=== PATIENT | male | born 1980 | race Caucasian/White ===

== ENCOUNTER 2017-08-27 08:28 | Emergency (ER) | payer OTHER ==
[2017-08-27 08:43] VITALS: RESP 17
[2017-08-27] MEDS ORDERED: DIPH,PERTUS(ACELL)TETVAC-LF 0.5 ML VIAL IM ONE (08:54)
--- NOTE | 2017-08-27 08:57 | ED ---
Wound/Laceration HPI - General Chief Complaint: Wound/Laceration Stated Complaint: [facility]. R hand laceration Time Seen by Provider: 08/27/17 08:46 Source: patient, RN notes reviewed Mode of arrival: ambulatory Limitations: no limitations - History of Present Illness Initial Comments: This is a 37-year-old male presents emergency Department with chief complaint of right hand index finger injury. 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 Patient states that he is unsure when his last tetanus was. Patient states the distal tip of some finger is missing. Patient is right-hand dominant. states that the pain is unbearable at times. He does have full range of motion of his digit. - Related Data Home Medications Medication Instructions Recorded Confirmed Ibuprofen [Motrin] 200 - 400 mg PO Q6HR PRN 08/27/17 08/27/17 Previous Rx's Medication Instructions Recorded Cephalexin [Keflex] 500 mg PO Q6HR #40 cap 08/27/17 Hydrocodone/Acetaminophen [Mchenry 1 tab PO Q6HR PRN #20 tab 08/27/17 5-325] Allergies Allergy/AdvReac Type Severity Reaction Status Date / Time No Known Allergies Allergy Verified 08/27/17 08:51 Review of Systems ROS Statement: Those systems with pertinent positive or pertinent negative responses have been documented in the HPI. ROS Other: All systems not noted in ROS Statement are negative. Past Medical History Past Medical History: No Reported History History of Any Multi-Drug Resistant Organisms: None Reported Past Surgical History: No Surgical Hx Reported Past Psychological History: No Psychological Hx Reported Smoking Status: Never smoker Past Alcohol Use History: Occasional Past Drug Use History: Marijuana General Exam Limitations: no limitations General appearance: alert, in no apparent distress Respiratory exam: Present: normal lung sounds bilaterally. Absent: respiratory distress, wheezes, rales, rhonchi, stridor Cardiovascular Exam: Present: regular rate, normal rhythm, normal heart sounds. Absent: systolic murmur, diastolic murmur, rubs, gallop, clicks Extremities exam: Present: other (Right hand second digit there is a very distal tip avulsion, nail avulsion noted patient has full range of motion there is minimal bleeding at this time. Remaining digits within normal limits) Skin exam: Present: warm, dry Course Vital Signs 11/22/17 08:40 Temperature 97.9 F Pulse Rate 81 Respiratory 17 Rate Blood Pressure 125/67 O2 Sat by Pulse 98 Oximetry Procedures - Procedures Initial comment: Right hand second digit digital block was performed proximal finger was cleaned with alcohol wipe, 1% lidocaine without epinephrine was used 4 mL of lidocaine were injected on either side of the digit patient tolerated well had complete relief of his pain. The finger was soaked in saline and Betadine thoroughly cleaned no form eyes noted Gelfoam was applied over the distal tip of the finger and finger was wrapped. Medical Decision Making - Medical Decision Making 29-year-old male presented for finger tip avulsion. This was thoroughly cleaned x-ray performed shows possible avulsion fracture. Patient was placed on antibiotics, pain medication and follow-up with Dr. Conley. Disposition Clinical Impression: Fingertip avulsion, Finger fracture, right Disposition: HOME SELF-CARE Condition: Stable Instructions: Finger Laceration (ED), Skin Avulsion (ED) Additional Instructions: Please return to the Emergency Department if symptoms worsen or any other concerns. Prescriptions: Cephalexin [Keflex] 500 mg PO Q6HR #40 cap Hydrocodone/Acetaminophen [Mchenry 5-325] 1 tab PO Q6HR PRN #20 tab PRN Reason: Pain Referrals: None,Stated [Primary Care Provider] - 1-2 days Dawit Conley DO [Doctor of Osteopathic Medicine] - 1-2 days Time of Disposition: 09:50
[2017-08-27] MEDS ORDERED: GELATIN SPONGE,ABSORB (SMALL) 1 EACH SPONGE TOPICAL STA (09:39)
--- NOTE | 2017-08-27 09:50 | XR ---
Second digit right hand HISTORY: Laceration 3 views of the second digit of the right hand. There is deformity of the tuft of the second digit of the right hand, small tuft fracture is present likely due to amputation with associated loss of soft tissue, small bone fragment. No dislocation. IMPRESSION: Partial amputation second digit.
[2017-08-27 10:26] VITALS: BP 132/60; PULSE 84; TEMP 97.7
== END 2017-08-27 10:25 | disposition home or self-care (01) ==
LOC: EC 08:28
DX: S62.630A Displaced fracture of distal phalanx of right index finger, initial encounter for closed fracture (principal); Z23 Encounter for immunization; W23.1XXA Caught, crushed, jammed, or pinched between stationary objects, initial encounter; Y92.69 Other specified industrial and construction area as the place of occurrence of the external cause; Y99.0 Civilian activity done for income or pay
CPT/HCPCS: 64450; 90471; 90715; 99283

== ENCOUNTER 2021-09-30 14:36 | Emergency (ER) | payer BC ==
[2021-09-30 15:45] VITALS: BP 145/81; PULSE 87; RESP 16; TEMP 99.5
== END 2021-09-30 17:20 | disposition left against medical advice (07) ==
LOC: EC 14:36
DX: Z53.21 Procedure and treatment not carried out due to patient leaving prior to being seen by health care provider (principal); B34.2 Coronavirus infection, unspecified
CPT/HCPCS: 87635; 99499

== ENCOUNTER → 2023-08-19 | Outpatient (CLI) | payer OTHER | END | disposition home or self-care (01) | LOC: LABWHC1 14:10 | PROVIDERS: ATTEND Family Medicine | DX: Z53.9 Procedure and treatment not carried out, unspecified reason (principal) ==

== ENCOUNTER → 2023-08-20 | Outpatient (CLI) | payer BC ==
[2023-08-20 16:23] LABS: HCT 44.4 % (39.6-50.0); HGB 14.3 g/dL (13.0-17.0); MCH 30.6 pg (27.0-32.0); MCHC 32.2 g/dL (32.0-37.0); MCV 95.1 FL (80.0-97.0); Mean Platelet Volume 10.1 FL (9.5-12.2); NRBC Per 100 WBC 0 X 10*3/uL (0.00-0.01); Platelet Count 347 X 10*3/uL (140-440); RBC 4.67 X 10*6/uL (4.40-5.60); RDW 12.6 % (11.5-14.5)
[2023-08-20 16:30] LABS: ALT 24 U/L (10-49); AST 17 U/L (14-35); Albumin 4.6 g/dL (3.8-4.9); Albumin/Globulin Ratio 2.19 Ratio (1.60-3.17); Alkaline Phosphatase 71 U/L (41-126); Blood Urea Nitrogen 12.8 mg/dL (9.0-27.0); Calcium 9.9 mg/dL (8.7-10.3); Carbon Dioxide 26.7 mmol/L (21.6-31.8); Chloride 105 mmol/L (96-109); Chol/HDL Ratio 3.65 Ratio; Globulin 2.1 g/dL (1.6-3.3); Glucose 93 mg/dL (70-110); LDL Cholesterol,Calculated 118.8 mg/dL (0.0-131.0); Potassium 4.4 mmol/L (3.5-5.5); Prostate Specific Antigen 0.76 ng/mL (0.000-2.500); Sodium 143 mmol/L (135-145); Total Bilirubin 0.3 mg/dL (0.3-1.2); Total Protein 6.7 g/dL (6.2-8.2); VLDL Calculation 14.02 mg/dL (5.00-40.00)
== END | disposition home or self-care (01) ==
LOC: LABWHC1 08:37
PROVIDERS: ATTEND Family Medicine
DX: I26.99 Other pulmonary embolism without acute cor pulmonale (principal)
CPT/HCPCS: 36415; 80053; 80061; 84153; 85027